=== PATIENT | female | born 1960 | race Caucasian/White ===

== ENCOUNTER → 2019-12-15 | Day surgery (SDC) | payer BC, OTHER ==
[~2019-12-15] MED LIST: Acetaminophen/oxyCODONE 325-5 MG Tab **OWN MED PO PRN; Acetaminophen/oxyCODONE 325-5 MG Tab PO PRN; Dexamethasone 4 MG/ML 5 ML MDV IV ONE; Glycopyrrolate 0.2 MG/ML SDV IVPUSH ONE; Ketamine 200 MG/20 ML MDV IV ONE; Ketorolac 30 MG/ML SDV IVPUSH ONE; Metoclopramide 10 MG/2 ML SDV IV ONE; Midazolam 1 MG/ML 2 ML SDV IV ONE; Morphine 4 MG/ML VIAL IV PRN; Neostigmine Methylsulfate 1 MG/ML 5 ML Syringe IV ONE; Ondansetron 4 MG/2 ML SDV IV ONE; Ondansetron 4 MG/2 ML SDV IVPUSH PRN; Phenylephrine 1% 10 MG/ML SDV IV ONE; Propofol 200 MG/20 ML SDV IV ONE; Rocuronium 50 MG/5 ML Vial IV ONE; Sodium Chloride 0.9% 10 ML Syringe FLUSH PRN; Succinylcholine 200 MG/10 ML MDV IV ONE; TRESIBA 200 UNIT/ML SQ SCH; ceFAZolin 1 GM Vial IVPUSH ONE; fentaNYL 100 MCG/2 ML SDV IV ONE
[2019-12-15] MEDS: Lactated Ringers 1,000 ML IV SCH ×2 (07:24→11:10)
--- NOTE | 2019-12-16 08:07 | PCM.SN.2 ---
- Free Text/Narrative Note: Stable POD #1. PO liquid tolerated well. Pain controlled. Wounds clean and dry. Ambulates well. No verbal complaints. Discharge instructions given. Percocet #10 given for pain. FU as needed. No restrictions. Can discharge.
--- NOTE | 2019-12-18 11:13 | OR ---
DATE OF OPERATION: 12/15/2019 PREOPERATIVE DIAGNOSIS: CHRONIC CHOLECYSTITIS WITH GALLBLADDER SLUDGE ON ULTRASOUND. POSTOPERATIVE DIAGNOSIS: CHRONIC CHOLECYSTITIS WITH GALLBLADDER SLUDGE ON ULTRASOUND. SURGEON: Jose Alejandro Clarke MD PROCEDURE: LAPAROSCOPIC CHOLECYSTECTOMY. ANESTHESIA: General. ESTIMATED BLOOD LOSS: Minimum. SPECIMEN: Gallbladder. INDICATIONS: This 59-year-old female has symptomatic right upper quadrant abdominal pain and an ultrasound shows sludge within the gallbladder. DESCRIPTION OF PROCEDURE: After adequate placement of trocars, the abdomen was insufflated. Examination of the gallbladder appeared to be normal. There were no other intraabdominal abnormalities noted. The cystic triangle structures of the gallbladder were dissected free and isolated. The duct and artery were then separately triply clipped and divided. The gallbladder was taken off the liver bed using blunt, sharp, and cautery dissection. There was some spillage of bile. This was suctioned clear with a liter of saline. The gallbladder was placed in a sterile retrieval bag and brought out through the epigastric trocar site. The abdomen was then desufflated and the skin closed with Vicryl. BPB/MEGANL /[id number]
--- NOTE | 2019-12-18 11:13 | OR ---
DATE OF OPERATION: 12/15/2019 PREOPERATIVE DIAGNOSIS: CHRONIC CHOLECYSTITIS WITH GALLBLADDER SLUDGE. POSTOPERATIVE DIAGNOSIS: CHRONIC CHOLECYSTITIS WITH GALLBLADDER SLUDGE. SURGEON: Jose Alejandro Clarke MD PROCEDURE: LAPAROSCOPIC CHOLECYSTECTOMY. ANESTHESIA: General. ESTIMATED BLOOD LOSS: Minimum. SPECIMEN: Gallbladder. INDICATIONS: This 59-year-old female has right upper quadrant abdominal pain, and an ultrasound shows gallbladder sludge. DESCRIPTION OF PROCEDURE: After adequate preparation, trocars were placed intra- abdominally under direct vision. She does have quite a thick omentum. It was somewhat difficult to see the gallbladder. The cystic triangle structures were eventually dissected free and identified. They were triply clipped and divided. The gallbladder was then taken off the liver bed using cautery dissection. The gallbladder was placed within the retrieval bag and brought out through the epigastric trocar site. The right upper quadrant was then irrigated and suctioned clear as there was some spillage of bile during the removal off the liver bed. No other intraabdominal abnormalities were noted. The abdomen was desufflated, trocars removed, and the skin closed with Vicryl. BPB/MEGANL /[id number]
== END | disposition home or self-care (01) ==
LOC: CC.SDS 06:59
PROVIDERS: ATTEND Surgery
DX: K81.1 Chronic cholecystitis (principal); K82.8 Other specified diseases of gallbladder; E78.00 Pure hypercholesterolemia, unspecified; E03.9 Hypothyroidism, unspecified; E11.9 Type 2 diabetes mellitus without complications; Z11.59 Encounter for screening for other viral diseases; Z88.0 Allergy status to penicillin; Z79.899 Other long term (current) drug therapy; Z79.84 Long term (current) use of oral hypoglycemic drugs
CPT/HCPCS: 00790; 82962; 93005; A9270-GY; J0330; J0690; J1100; J1885; J2250; J2370; J2405; J2704; J2710; J2765; J3010; J3490; J7120; U0002